=== PATIENT | male | born 1975 ===

== ENCOUNTER 2021-10-06 13:31 | Emergency (ER) | payer BC ==
[2021-10-06] MEDS ORDERED: Sodium Chloride 0.9% 1,000 ML IV SCH (14:00)
[2021-10-06] MEDS ORDERED: Diltiazem 100 MG in Sodium Chloride 0.9% 100 ML IV SCH (14:00)
[2021-10-06] MEDS ORDERED: Diltiazem 50 MG/10 ML SDV IVPUSH ONE ×2 (14:01→14:53)
[2021-10-06] MEDS ORDERED: Furosemide 40 MG/4 ML VIAL IVPUSH ONE (14:34)
[2021-10-06] MEDS ORDERED: Diltiazem 240 MG Cap.ER PO ONE (14:41)
[2021-10-06 14:47] LABS: ESTIMATED GFR > 60 mL/min (>60)
[2021-10-06] MEDS ORDERED: Apixaban 5 MG Tab PO ONE (15:34)
[2021-10-06] MEDS ORDERED: Diphtheria,Pertussis(Acell),Tetanus Vaccine 0.5 ML Syringe IM ONE (17:23)
== END 2021-10-06 17:45 | disposition home or self-care (01) ==
LOC: JD.ED 13:31
DX: I48.91 Unspecified atrial fibrillation (principal); I50.9 Heart failure, unspecified; F17.210 Nicotine dependence, cigarettes, uncomplicated; Z79.899 Other long term (current) drug therapy; Z79.01 Long term (current) use of anticoagulants; Z88.8 Allergy status to other drugs, medicaments and biological substances; Z23 Encounter for immunization
CPT/HCPCS: 36415; 71045; 80053; 80307; 82553; 83735; 83880; 84443; 84484; 85025; 85610; 85730; 86140; 90471; 90715; 93005; 96365; 96366; 96375; 99285; A9270; J1940; J3490; J7030